=== PATIENT | male | born 1965 | race African-American/Black ===

== ENCOUNTER 2020-03-05 15:50 | Emergency (ER) | payer OTHER ==
[2020-03-05 16:02] VITALS: BP 139/99; PULSE 97; TEMP 98.8; BMI 38.3
== END 2020-03-05 16:48 | disposition home or self-care (01) ==
LOC: FER 15:50
DX: S76.301A Unspecified injury of muscle, fascia and tendon of the posterior muscle group at thigh level, right thigh, initial encounter (principal)
CPT/HCPCS: 99283-25